=== PATIENT | male | born 1955 | race Caucasian/White ===

== ENCOUNTER 2017-08-15 07:38 | Outpatient (CLI) | payer OTHER ==
--- NOTE | 2017-08-15 12:08 | MRI ---
THORACIC SPINE MRI WITHOUT CONTRAST: Date: 08/15/17 COMPARISON: None. HISTORY: Radiculopathy and pain. TECHNIQUE: Multiplanar, multisequence MR imaging of the thoracic spine is obtained without contrast. FINDINGS: There is significant degenerative disc disease at the C5-6 level with probable associated central can al and bilateral neural foraminal stenosis, not well characterized/visualized on this exam. If there are symptoms referable to the C5-6 level, dedicated cervical spine MRI is suggested. The sagittal STIR imaging demonstrates no focal area of osseous marrow edema. Incidental note is made of a round T2 hyperintense structure/lesion which measures 1.5 cm in transver se dimension abutting the anterior and right aspect of the aorta at the level of the diaphragmatic hi atus, inseparable from/abutting the posterior aspect of the esophagus. No thoracic spine anterolisthesis or retrolisthesis is noted. No significant central canal stenosis is seen within the thoracic spine. There is no abnormal signal intensity identified within the thoracic cord. On the basis of facet hypertrophy, there is mild bilateral neural foraminal stenosis at the T11-12 le mildred. No evidence for thoracic spine fracture. IMPRESSION: 1. T2 hyperintense lesion at the level of the thoracic inlet abuts the posterior aspect of the esoph joy. Recommend further assessment via CT examination of the chest with IV contrast. 2. No significant central canal stenosis within the thoracic spine. No evidence for thoracic spine f racture and no abnormal signal intensity identified within the thoracic cord. CODE T. POS: [facility]
--- NOTE | 2017-08-15 12:13 | MRI ---
MRI LUMBAR SPINE: 08/15/2017 HISTORY: Left hip pain and back pain. Radiculopathy. COMPARISON: None. TECHNIQUE: Multiplanar, multisequence MR imaging of the lumbar spine obtained without contrast. 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 Assuming five lumbar type vertebral bodies, the conus medullaris terminates at the T12-L1 level. There are edematous degenerative endplate changes centered at the T12-L1 level, with associated Schmo rl's nodes involving the inferior endplate of T12 and the superior endplate of L1. Mild anterolisthesis of L4 on L5 noted, measuring 5-6 mm. T12-L1: Mild bilateral facet hypertrophy. Disk space narrowing and mild disk bulge present. Mild c entral canal stenosis and mild bilateral neural foraminal stenosis. L1-L2: Mild bilateral facet hypertrophy. There is disk space narrowing, disk desiccation, and mild d isk bulge. There is mild central canal stenosis and left neural foraminal stenosis. L2-L3: There is significant bilateral facet hypertrophy with hypertrophy of the ligamentum flavum, r ight greater than left. Posteriorly projecting synovial cyst formation noted at the level of the rig ht facet joint. Mild central canal stenosis and mild bilateral neural foraminal stenosis noted. L3-L4: Moderate bilateral facet hypertrophy and hypertrophy of the ligamentum flavum, right greater than left. There is disk desiccation and mild disk space narrowing. Mild central canal stenosis and bilateral neural foraminal stenosis L4-L5: There is severe bilateral facet hypertrophy and hypertrophy of the ligamentum flavum with flu id within the bilateral facet joints. There is disk desiccation, disk space narrowing, and mild disk bulge with mild central canal stenosis. Severe right and moderate left neural foraminal stenosis. L5-S1: Intervertebral disk height and signal intensity are within normal limits. There is mild bila teral facet hypertrophy with mild bilateral neural foraminal stenosis. No central canal stenosis. There is a 1.9 cm lower pole right renal cyst. Imaged retroperitoneal structures are grossly unremar kable otherwise. IMPRESSION: There is multilevel degenerative change within the lumbar spine, most significant at L4-L5, where the re is severe bilateral facet hypertrophy with mild anterolisthesis and prominent bilateral neural for aminal stenosis, right greater than left. Fluid within the facet joints at L4-L5 may signify instabi lity, which would be better assessed with flexion/extension radiographs of the lumbar spine. POS: [facility]
== END 2017-08-15 07:39 | disposition home or self-care (01) ==
LOC: MRI 07:38
PROVIDERS: ATTEND Specialist
DX: M54.14 Radiculopathy, thoracic region (principal); M47.16 Other spondylosis with myelopathy, lumbar region; M12.88 Other specific arthropathies, not elsewhere classified, other specified site; M43.16 Spondylolisthesis, lumbar region; M48.061 Spinal stenosis, lumbar region without neurogenic claudication; G95.89 Other specified diseases of spinal cord
CPT/HCPCS: 72146; 72148

== ENCOUNTER 2017-12-10 09:19 | Outpatient (CLI) | payer OTHER ==
[~2017-12-10 09:19] MED LIST: Iopamidol 370 76% 100 ML VIAL ONE
[2017-12-10 09:55] LABS: Estimated GFR-MDRD - POC Greater than 90
--- NOTE | 2017-12-10 12:17 | CT ---
CT THORAX WITH IV CONTRAST: Date: 12/10/17 HISTORY: Mass in chest. Patient had prior MRI of thoracic spine demonstrating an increased T2-weighted signal intensity lesion in the posterior inferior mediastinum. Further evaluation with CT scan was requested . 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 This demonstrated fluid signal intensity on the MRI examination and this also demonstrates fluid den sity on this exam. 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 Mediastinal structures otherwise have a normal appearance. A dual lead left subclavian cardiac pacemaking device is noted in place with RA and RV leads. There i s no evidence of lymphadenopathy. A 6.0 mm noncalcified pulmonary nodule is seen in the right middle lobe. There is a nodular density s een along the right hemidiaphragm, but this has the appearance most suggestive of fat density as oppo sed to pleural thickening or nodular pleural based lesion. Lungs are otherwise clear aside from mild linear scarring versus atelectasis at the left lung base, There is a 1.4 cm hypodense lesion in the lateral segment of left hepatic lobe which does demonstrate fluid attenuation, most suggestive of a hepatic cyst. There is a nodular density seen posterior to the posterior segment of the right hepatic lobe. This is probably related to a portion of the liver as opposed to a lesion. Degenerative changes are noted in the spine. IMPRESSION: 1. 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 2. Pulmonary nodule right middle lobe. Follow-up evaluation in 6 months is recommended. 3. Left hepatic lobe cyst. CODE T. POS: [facility]
== END 2017-12-10 09:20 | disposition home or self-care (01) ==
LOC: CT 09:19
PROVIDERS: ATTEND Specialist
DX: R22.2 Localized swelling, mass and lump, trunk (principal); J98.4 Other disorders of lung; R91.1 Solitary pulmonary nodule; K76.89 Other specified diseases of liver
CPT/HCPCS: 71260; 82565

== ENCOUNTER 2018-08-01 12:43 | Outpatient (CLI) | payer OTHER ==
--- NOTE | 2018-08-01 14:11 | CT ---
EXAM: CT chest with contrast HISTORY: Lung nodule Comparison: CT chest 12/10/17 FINDINGS: Atelectatic changes in the lung bases. 6.0 mm nodule right middle lobe, unchanged. No new suspicious pulmonary nodule. No pneumothorax or effusion. There is likely a lymph node along the right diaphragm, axial image 82. Thyroid is unremarkable. There is unchanged lobular soft tissue mass along the right perirenal space. IMPRESSION: 1. Unchanged 6.0 mm right middle lobe pulmonary nodule. 2. No new suspicious pulmonary nodule. 3. Lobular hypodense mass along the right perirenal space. This is incompletely evaluated. A renal p rotocol CT or MRI is recommended. 4. 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 POS: [facility]
== END 2018-08-01 12:44 | disposition home or self-care (01) ==
LOC: BICCT 12:43
PROVIDERS: ATTEND Family Medicine
DX: R91.1 Solitary pulmonary nodule (principal); R93.421 Abnormal radiologic findings on diagnostic imaging of right kidney
CPT/HCPCS: 71260; 82565

== ENCOUNTER 2021-09-26 10:22 | Outpatient (CLI) | payer OTHER | END 2021-09-26 10:23 | disposition home or self-care (01) | LOC: BICRAD 10:22 | PROVIDERS: ATTEND Nurse Practitioner Family | DX: M47.816 Spondylosis without myelopathy or radiculopathy, lumbar region (principal) | CPT/HCPCS: 72110 ==

== ENCOUNTER 2021-09-30 12:53 | Outpatient (CLI) | payer OTHER | END 2021-09-30 12:54 | disposition home or self-care (01) | LOC: CT 12:53 | PROVIDERS: ATTEND Nurse Practitioner Family | DX: M47.816 Spondylosis without myelopathy or radiculopathy, lumbar region (principal); M48.061 Spinal stenosis, lumbar region without neurogenic claudication; M43.16 Spondylolisthesis, lumbar region | CPT/HCPCS: 72131 ==